=== PATIENT | female | born 1935 | race Caucasian/White ===

== ENCOUNTER 2023-06-09 20:33 | Emergency (ER) | payer MEDICARE, BC ==
[~2023-06-09] VITALS: Ht 162.6 cm; Wt 56.7 kg
[2023-06-09 21:16] VITALS: TEMP 98.2
[2023-06-09] MEDS ORDERED: TDAP [DIPH/PERTUSSIS/TET] 0.5 ML VIAL IM ONE (22:27)
[2023-06-09] MEDS: TDAP [DIPH/PERTUSSIS/TET] 0.5 ML VIAL IM ONE (22:35)
[2023-06-09] MEDS ORDERED: LIDOCAINE HCL/MPF 1% 30 ML VIAL IJ ONE (23:59)
[2023-06-10] MEDS: LIDOCAINE HCL/PF 1% 30 ML VIAL TP ONE (00:04)
[2023-06-10] MEDS ORDERED: AMOX-430 PO (00:56)
[2023-06-10 01:22] VITALS: BP 127/88; O2SAT 98
== END 2023-06-10 01:22 | disposition home or self-care (01) ==
LOC: ER 20:41
DX: S91.311A Laceration without foreign body, right foot, initial encounter (principal); S61.411A Laceration without foreign body of right hand, initial encounter; W55.01XA Bitten by cat, initial encounter; Y93.89 Activity, other specified; Y92.89 Other specified places as the place of occurrence of the external cause; Y99.8 Other external cause status
CPT/HCPCS: 99284; 12002; 90471; 90715; 73630; 73130; J3490 ×2

== ENCOUNTER 2023-06-11 11:17 | Emergency (ER) | payer MEDICARE, BC ==
[~2023-06-11] VITALS: Ht 162.6 cm; Wt 58.1 kg
[~2023-06-11 11:17] MED LIST: AMOX-430 PO
[2023-06-11 11:34] VITALS: BP 128/89; TEMP 98.3
[2023-06-11] MEDS ORDERED: BACI/NEOM/POLY B OINT PKT 1 UDPKT PACKET ONE ×2 (13:05→13:10)
[2023-06-11] MEDS: BACI/NEOM/POLY B OINT PKT 1 UDPKT PACKET TP ONE (13:10)
[2023-06-11 13:16] VITALS: O2SAT 97
== END 2023-06-11 13:20 | disposition home or self-care (01) ==
LOC: ER 11:17
DX: S61.411D Laceration without foreign body of right hand, subsequent encounter (principal); S91.311D Laceration without foreign body, right foot, subsequent encounter; Z48.00 Encounter for change or removal of nonsurgical wound dressing; W55.01XD Bitten by cat, subsequent encounter